=== PATIENT | female | born 1980 ===

== ENCOUNTER 2020-03-22 08:37 | Outpatient (REF) | payer OTHER, SELFPAY | END 2020-03-22 08:38 | disposition home or self-care (01) | LOC: HO.LAB 08:37 | PROVIDERS: Visit Provider Internal Medicine | DX: Z20.822 Contact with and (suspected) exposure to COVID-19 (principal) | CPT/HCPCS: 36415; C9803; U0003; U0005 ==

== ENCOUNTER 2021-01-25 13:46 | Outpatient (REF) | payer MEDICAID, SELFPAY ==
--- NOTE | ~2021-01-25 | US_ITS ---
EXAMINATION: US THYROID CLINICAL INFORMATION: Nontoxic single thyroid nodule. COMPARISON: Ultrasound soft tissue head/neck thyroid dated 07/03/2018. TECHNIQUE: Linear transducer grayscale and color Doppler examination with attention to the region of the thyroid. FINDINGS: SIZE: Measurements of the thyroid lobes and nodules are given in sagittal, anteroposterior and transverse dimensions respectively. Right Thyroid Lobe: 4.0 x 2.0 x 1.7 cm, volume 7.1 mL. Previously 4.6 x 1.7 x 1.8 cm, volume 7.2 mL. Parenchyma: The gland echotexture is heterogeneous. Thyroid vascularity is normal. Left Thyroid Lobe: 4.0 x 1.5 x 1.7 cm, volume 5.3 mL. Previously 4.8 x 1.4 x 1.7 cm, volume 6.1 mL. Parenchyma: The gland echotexture is heterogeneous. Thyroid vascularity is normal. Isthmus: 0.3 cm in maximum AP dimension. Previously 0.2 cm. Estimated total number of nodules greater than or equal to 1 cm: 0. 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 Location: Right mid. Size: 0.9 x 0.8 x 0.6 cm, volume 0.21 mL. Previously: 0.9 x 0.5 x 0.5 cm, volume 0.12 mL. Nodule characteristics: Composition: Solid/almost completely solid (2). Echogenicity: Isoechoic (1). Shape: Not taller than wide (0). Margins: Smooth (0). Echogenic Foci: None (0). ACR TI-RADS total points: 3 Previous: n/a ACR TI-RADS category: 3 Previous: n/a Significant change in size (>/= 20% in 2 dimensions and minimal increase of 2 mm or 50% or greater increase in volume): Yes Change in features: No Change in ACR TI-RADS risk category: n/a NODES: No lymphadenopathy is seen in the tissue surrounding the thyroid gland. US/US thyroid IMPRESSION: Solitary thyroid nodule again noted corresponding to category 3. No follow-up imaging recommended. ACR TI-RADS RECOMMENDATION REFERENCE: Ultrasound-guided fine-needle aspiration, followup ultrasound, no further follow up. * TR1 (0 point) and TR 2 (2 points): No FNA or follow up * TR3 (3 points): FNA if more than or equal to 2.5 cm in maximum dimension, followup ultrasound in 1, 3 and 5 years if 1.5 to 2.4 cm in maximum dimension. * TR4 (4-6 points): FNA if more than or equal to 1.5 cm in maximum dimension, followup ultrasound in 1, 2, 3 and 5 years if 1 to 1.4 cm in maximum dimension. * TR5 (more than or equal to 7 points): FNA if more than or equal to 1 cm in maximum dimension, followup ultrasound every year for 5 years if 0.5 to 0.9 cm in maximum dimension. * TR3, TR4 or TR5 nodules that are below the size threshold for follow up receive no follow up.
== END 2021-01-25 13:47 | disposition home or self-care (01) ==
LOC: HO.US 13:46
PROVIDERS: PCP Registered Nurse Community Health; Visit Provider Registered Nurse Community Health
DX: E04.1 Nontoxic single thyroid nodule (principal); Z86.39 Personal history of other endocrine, nutritional and metabolic disease
CPT/HCPCS: 76536

== ENCOUNTER 2022-06-20 11:03 | Outpatient (REF) | payer MEDICAID, SELFPAY | END 2022-06-20 11:04 | disposition home or self-care (01) | LOC: HO.LNP 11:03 | PROVIDERS: PCP Registered Nurse Community Health; Visit Provider Obstetrics & Gynecology | DX: R87.613 High grade squamous intraepithelial lesion on cytologic smear of cervix (HGSIL) (principal) | CPT/HCPCS: 57454; 81025; 88305; 88342; 88344 ==

== ENCOUNTER → 2022-06-27 13:32 | Outpatient (BNVA) | payer MEDICAID, SELFPAY | PROVIDERS: PCP Registered Nurse Community Health; Visit Provider Obstetrics & Gynecology | DX: N87.1 Moderate cervical dysplasia (principal) | CPT/HCPCS: 99212 ==

== ENCOUNTER 2022-07-07 10:42 | Day surgery (SDC) | payer MEDICAID, SELFPAY ==
--- NOTE | 2022-07-06 09:21 | HO.ANESPROP2 ---
HPI - Anesthesia Eval Consult details Narrative: 41yo F for LEEP,poss loop electrical excision procedure,cone endocervical curettage, PMFSH Active Problems Active Problems: All Active Problems (Updated 06/27/22 @ 14:06 by Atilio Art MD) CARLOS II (cervical intraepithelial neoplasia II) (Acute) HGSIL on cytologic smear of cervix (Acute) Past Medical History Medical History Abnormal Pap smear of cervix Asthma Juli's disease Keloid cicatrix Family History Family History Mother Diabetes HTN (hypertension) Leukemia Father Prostate CA Maternal Grandmother Colon cancer Stomach cancer Paternal Aunt Breast cancer Social History Social History Household Members: Spouse Housing: House Alcohol intake: current Alcohol intake frequency: holidays/special occasions only Patient Tobacco Use Status: Never used Tobacco Current occupational status: employed 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 Sexual orientation: Straight/Heterosexual Gender identity: Female Meds Allergies Allergy/AdvReac Type Severity Reaction Status Date / Time iodine [IODINE] Allergy Severe SWELLING Unverified 06/27/22 14:03 Iodine Allergy Unknown redness Uncoded 06/27/22 14:03 Home Medications Medication Instructions Recorded Confirmed Last Taken Type albuterol sulfate 90 mcg/actuation 2 puff inhalation Q6H PRN wheezing 06/20/22 Unknown History aerosol inhaler (Ventolin HFA) famotidine 20 mg tablet 20 mg PO BID 06/20/22 Unknown History fluticasone propionate 220 2 puff inhalation BID 06/20/22 Unknown History mcg/actuation HFA aerosol inhaler (Flovent HFA) Exam Exam Date and Time: July 06, 2022920 Assessment and Plan Assessment Anesthesia Assessment: Chart Reviewed
[2022-07-07] VITALS (8 sets, daily range): BP systolic 94–114; BP diastolic 57–80; PULSE 74–95; RESP 15–16; TEMP 36.8–36.9; O2SAT 97–98; BMI 31.1
[2022-07-07] MEDS: Lactated Ringers 1,000 ML 100 ML IVCONT (11:52)
--- NOTE | 2022-07-07 12:01 | P.CONAN_ITS ---
[facility] Active Problems Active Problems: All Active Problems (Updated 07/07/22 @ 11:20 by Annia Donnelly RN) HGSIL on cytologic smear of cervix (Acute) CARLOS II (cervical intraepithelial neoplasia II) (Acute) Past Medical History Medical History Abnormal Pap smear of cervix Asthma GERD (gastroesophageal reflux disease) Juli's disease Keloid cicatrix Family History Family History Mother Diabetes HTN (hypertension) Leukemia Father Prostate CA Maternal Grandmother Colon cancer Stomach cancer Paternal Aunt Breast cancer Family history of problems with anesthesia: No Surgical History Surgical History Hx of tubal ligation History of Problems with Anesthesia: No Social History Social History Household Members: Spouse Housing: House Alcohol intake: current Alcohol intake frequency: holidays/special occasions only Patient Tobacco Use Status: Never used Tobacco Use of substances other than those prescribed or required for medical reasons: No Are you DNR?: No Advance Directives: No Advance Directives Information Provided: Yes Current occupational status: employed 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 Sexual orientation: Straight/Heterosexual Gender identity: Female Meds Allergies Allergy/AdvReac Type Severity Reaction Status Date / Time iodine [IODINE] Allergy Severe SWELLING Verified 07/07/22 11:51 Active Medications: Current Medications Albuterol Sulfate (Albuterol Sulfate (0.083%) 2.5 Mg/3 Ml Vial.Neb) 2.5 mg INHALE ONCE PRN PRN Reason: Shortness of Breath/Wheezing Fentanyl (Fentanyl Citrate/Pf 100 Mcg/2 Ml Vial) 50 mcg IVPUSH Q5M PRN; Protocol PRN Reason: Pain, Severe (Pain Scale 7-10) Lactated Ringer's (Lr) 1,000 mls @ 100 mls/hr IVCONT .Q10H STANLEY Last Admin: 07/07/22 11:52 Dose: 100 mls/hr Ondansetron HCl (Ondansetron Hcl 4 Mg/2 Ml Vial) 4 mg IVPUSH ONCE PRN PRN Reason: Nausea and Vomiting Oxycodone HCl (Oxycodone Hcl Immed Release 5 Mg Tablet) 5 mg PO ONCE PRN PRN Reason: Pain, Severe (Pain Scale 7-10) Home Medications Medication Instructions Recorded Confirmed Last Taken Type albuterol sulfate 90 mcg/actuation 2 puff inhalation Q6H PRN wheezing 06/20/22 07/07/22 Unknown History aerosol inhaler (Ventolin HFA) famotidine 20 mg tablet 20 mg PO BID 06/20/22 07/07/22 Unknown History fluticasone propionate 220 2 puff inhalation BID 06/20/22 07/07/22 Unknown History mcg/actuation HFA aerosol inhaler (Flovent HFA) Exam Exam Date and Time: July 07, 2022 1201 Height,Weight and Vital Signs: Height 5 ft 2 in Weight 77.111 kg Last Vital Signs Temp 98.4 F 07/07/22 11:27 Pulse 78 07/07/22 11:27 Resp 15 07/07/22 11:27 BP 109/70 07/07/22 11:27 Pulse Ox 98 07/07/22 11:27 O2 Del Method Room Air 07/07/22 11:27 Airway Mallampati Class: II TM Dist: >3cm Neck ROM: Full Loose/Missing/Broken Teeth: No Heart: rrr Lungs: clear Assessment and Plan Final Anesthetic Review Family History of Problems with Anesthesia: No History of Problems with Anesthesia: No NPO: Yes ASA Class: II Final Preanesthetic Review: No Changes in Pt Med Stat, Meds/Allgs Chart Reviewed, Consent Obtained/Reviewed and Anes Risks/Benef Reviewed Patient Risk: Intermediate Procedure Risk: Low Anesthetic Plan Anesthetic Plan: GA Disposition: Standard PACU
[2022-07-07 12:02] LABS: UPreg QC Valid YES; Urine Pregnancy NEGATIVE (NEGATIVE)
--- NOTE | 2022-07-07 12:30 | MHC.SHP ---
Pre-Procedural Eval Section A Date of Service: 07/07/22 The patient is an INPATIENT: No Changes since office visit: No Cold of Flu in the past 2 weeks, No New Medical Problems, No Changes in Medication and No Patient answered all questions The History & Physical has been completed within 30 days and I have reviewed it.: Yes Section B Chief Complaint: Moderate cervical dysplasia Allergies: Allergies Allergy/AdvReac Type Severity Reaction Status Date / Time iodine [IODINE] Allergy Severe SWELLING Verified 07/07/22 11:51 Plan Diagnosis/Plan: Unchanged I have reviewed the history and physical and performed a pertinent physical examination on my patient. No changes have occurred unless specified. Time Spent With Patient Time: Total time managing care of this patient today ____ minutes.
--- NOTE | 2022-07-07 13:14 | PM.OP ---
Brief Operative Note Date of Service: 07/07/22 Pre-op diagnosis: CARLOS 2 Post-op diagnosis: same Procedure: LEEP CONE with post CONE ECC Surgeon: Atilio Art MD Anesthesia: GLMA and other (Paracervical block) Was an Digital Tech used for this Procedure?: No Estimated blood loss (mL): 0 Pathology: other (Cervical cone, top-hat, anterior ectocervical margin excision, posterior ectocervical margin excision, Post cone ECC) Condition: stable Disposition: other (Home)
--- NOTE | 2022-07-07 13:15 | W.PM.OPN ---
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 A speculum was inserted inside the patient's vagina. The cervix is assessed using the colposcope with acetic acid , the lesions were seen, and at least 1 cm of the squamocolumnar junction was observed. 20 x 5 mm size loop was selected based upon the diameter of the lesion. Lugol solution was used to outline the lesions and area of the transformation zone order to be removed 10 cc of xylocaine with epinephrine were injected submucosally into the surface of the cervix (ectocervix) at the 3, 6, 9, and 12 o'clock positions. The electrosurgical generator is set at 40 baird on blend 1. The loop is carefully passed simultaneously around and under the transformation zone, in order to ensure excising it making sure the lesion is at least 5 mm far from the specimen margins . The loop was allowed to glide through the cervix from one side to the other, allowing the cutting current to divide the tissue. Next, the anterior and posterior ectocervical margin excisions were done; Using a smaller-diameter loop , endo cervical top-hat excision was performed afterwards. An endo cervical curettage is performed following completion of excision, and hemostasis is obtained with a Ball electrode or regular tip cautery. At the end, Monsel's solution was applied to the cone bed. The patient tolerated the procedure well and, all instruments were taken out of the patient vaginal cavity, and the patient was transferred to the PACU in stable condition.
[2022-07-07] MEDS: Acetaminophen 1,000 MG/100 ML PIGGYBACK 400 MG IV (13:57)
== END 2022-07-07 14:50 | disposition home or self-care (01) ==
PROVIDERS: Nurse Practitioner; PCP Registered Nurse Community Health; Visit Provider Obstetrics & Gynecology
PROC: 0UBC7ZZ Excision of Cervix, Via Natural or Artificial Opening (ICD-10-PCS; CPT 57522; principal; 2022-07-07 13:10)
DX: N87.0 Mild cervical dysplasia (principal); J45.909 Unspecified asthma, uncomplicated; E06.3 Autoimmune thyroiditis; K21.9 Gastro-esophageal reflux disease without esophagitis; Z79.51 Long term (current) use of inhaled steroids; Z79.899 Other long term (current) drug therapy; Z91.041 Radiographic dye allergy status; Z88.8 Allergy status to other drugs, medicaments and biological substances
CPT/HCPCS: 57461; 81025; 88305; 88307; J0131; J1100; J2250; J2405

== ENCOUNTER → 2022-07-27 08:14 | Outpatient (BNVA) | payer MEDICAID, SELFPAY | PROVIDERS: PCP Registered Nurse Community Health; Visit Provider Obstetrics & Gynecology | DX: N87.1 Moderate cervical dysplasia (principal) | CPT/HCPCS: 99212 ==

== ENCOUNTER 2022-09-08 08:32 | Outpatient (REF) | payer MEDICAID, SELFPAY ==
--- NOTE | ~2022-09-08 | MM_ITS ---
EXAMINATION: MM SCREENING DIGITAL BREAST TOMOSYNTHESIS, BILATERAL CLINICAL INFORMATION: Screening. Asymptomatic. The lifetime risk of breast cancer based on the Tyrer-Cuzick Model is 13.3.%. COMPARISON: Mammography: None. TECHNIQUE: Digital breast tomosynthesis is performed in both the craniocaudal and mediolateral oblique views along with computer-aided detection (CAD). Synthesized 2D images are generated from the tomosynthesis. FINDINGS: There are scattered areas of fibroglandular density (ACR BI-RADS breast composition Category b). There are no significant masses, abnormal calcifications, or other abnormalities. MM/MM tomosynthesis screening BI IMPRESSION: No mammographic evidence of malignancy. ASSESSMENT: BI-RADS BI-RADS 1 - Negative RECOMMENDATION: Routine annual mammography screening. 1 year F/U This examination should not preclude the clinical evaluation of a suspicious palpable abnormality. This patient's information was entered into a reminder system with a target due date for their next mammogram.
== END 2022-09-08 08:33 | disposition home or self-care (01) ==
LOC: HO.MAMMO 08:32
PROVIDERS: Visit Provider Registered Nurse
DX: Z12.31 Encounter for screening mammogram for malignant neoplasm of breast (principal)
CPT/HCPCS: 77063; 77067

== ENCOUNTER → 2022-09-08 08:45 | Outpatient (BNV) | payer MEDICAID, SELFPAY | PROVIDERS: Visit Provider Radiology Diagnostic Radiology | DX: Z12.31 Encounter for screening mammogram for malignant neoplasm of breast (principal) | CPT/HCPCS: 77063; 77067 ==

== ENCOUNTER 2022-10-04 12:09 | Outpatient (REF) | payer MEDICAID, SELFPAY ==
[2022-10-04 14:51] LABS: Syphilis Screen Nonreactive (Nonreactive)
[2022-10-04 18:28] LABS: CT PCR NOT DETECTED (Not Detect.); NG PCR NOT DETECTED (Not Detect.)
[2022-10-05 05:12] LABS: HBS Num1 324.55 mIU/mL (0-7.99); HBc Num1 0.08 S/CO (0.00-0.79); HBsAGNum1 0.32 S/CO (0.00-0.99); HIV AB/AG Nonreactive (Nonreactive); Hepatitis B Core Antibody Nonreactive (Nonreactive); Hepatitis B Surface Antigen Negative (Negative); ~Hepatitis B Surface Antibody REACTIVE (Nonreactive)
[2022-10-05 05:13] LABS: ~HepC Num1 0.05 S/CO (0.00-0.79); ~Hepatitis C Antibody Nonreactive (Nonreactive)
== END 2022-10-04 12:10 | disposition home or self-care (01) ==
LOC: HO.HHCL 12:09
PROVIDERS: Visit Provider Student in an Organized Health Care Education/Training Program
DX: Z00.00 Encounter for general adult medical examination without abnormal findings (principal)
CPT/HCPCS: 0353U; 86704; 86706; 86780; 86803; 87340; 87389

== ENCOUNTER 2023-02-01 13:43 | Outpatient (REF) | payer MEDICAID, SELFPAY ==
[2023-02-09 03:48] LABS: HPV mRNA E6/E7 Not Detected (Not Detected)
== END 2023-02-01 13:44 | disposition home or self-care (01) ==
LOC: HO.LNP 13:43
PROVIDERS: PCP Registered Nurse Community Health; Visit Provider Obstetrics & Gynecology
DX: Z12.4 Encounter for screening for malignant neoplasm of cervix (principal); Z11.51 Encounter for screening for human papillomavirus (HPV); R87.613 High grade squamous intraepithelial lesion on cytologic smear of cervix (HGSIL)
CPT/HCPCS: 57454; 81025; 87624; 88142; 88305; 88341; 88342; 88360

== ENCOUNTER 2023-02-01 13:43 | Outpatient (AMB) | payer MEDICAID, SELFPAY ==
[2023-02-01 13:52] VITALS: BP 108/68; BMI 31.3
--- NOTE | 2023-02-01 13:52 | MHC.OFFVIS ---
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 Operator Present (Aidyn) Allergies iodine [IODINE] Allergy (Severe, Verified 02/01/23 14:06) SWELLING Is last menstrual period known: No Post menopausal: No Patient : No HPI HPI Comments History of Present Illness Details Presenting for 6 months colpo/biopsy post LEEP cone with post cone ECC for CARLOS 1 positive margin with a previous colpo biopsy that showed CARLOS 2 PFSH Medical History GERD (gastroesophageal reflux disease) Keloid cicatrix Juli's disease Asthma Abnormal Pap smear of cervix Surgical History Hx of tubal ligation Family History Mother Diabetes HTN (hypertension) Leukemia Father Prostate CA Maternal Grandmother Colon cancer Stomach cancer Paternal Aunt Breast cancer Social History Household Members: Spouse Housing: House Alcohol intake: current Alcohol intake frequency: holidays/special occasions only Patient Tobacco Use Status: Never used Tobacco Current occupational status: employed 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 Sexual orientation: Straight/Heterosexual Gender identity: Female Female Reproductive History Menstrual control method: permanent sterilization Review of Systems Const All systems reviewed & are unremarkable except as noted in HPI and below Reports as per HPI and Reports no additional complaints GI Reports no additional complaints Reports no additional complaints Office Procedures Colposcopy Before the procedure was started discussed with the patient the procedure, alternatives & all the risks associated with the procedure (bleeding, infection, injury to vagina, bladder, vessels, possible need for transfusion with all its risks) then patient signed the consent UPT done in the office & negative 6 months post LEEP cone with post cone ECC Speculum inserted, acetic acid used Colposcopy done Transformation zone seen, acetowhite lesions identified at 6+12+9 o?clock, cervical biopsies taken from 6+12+9 o?clock, ECC done afterwards. Vaginoscopy of the upper vagina showed no evidence of any aceto-white lesions Monsel solution used for hemostasis. The patient tolerated well . At the end the patient was instructed to call if temp>100.4, abdominal pain, n/v, bleeding; The patient was given the following instructions: nothing per vagina, no intercourse or bath tub use. All questions answered the patient verbalized understanding. Instructed the patient to make an appointment in 2 weeks for follow-up This note was generated with a voice recognition program. Some errors may have been overlooked during the review of this note. Sometimes these errors may affect the content or meaning of a given sentence. [id number] of cervix including upper vagina with biopsy and ECC Procedure code (CPT) selection complete Assessment & Plan Assessment & Plan (1) CARLOS II (cervical intraepithelial neoplasia II): Comment: Status post LEEP cone was post cone ECC Code(s): N87.1 - Moderate cervical dysplasia Plan: Co testing done, colpo biopsy done see procedure Orders: Orders AMB Colposcopy Today N87.1 - Moderate cervical dysplasia Coding Level of Care Code Procedure Only Diagnoses CARLOS II (cervical intraepithelial neoplasia II) N87.1 CPT Codes Colposcopy - CPT: 39706-[id number] of cervix including upper vagina with biopsy and ECC ([id number])
== END 2023-02-01 14:21 | disposition home or self-care (01) ==
PROVIDERS: PCP Registered Nurse Community Health; Visit Provider Obstetrics & Gynecology
DX: N87.1 Moderate cervical dysplasia (principal); Z32.02 Encounter for pregnancy test, result negative
CPT/HCPCS: 57454

== ENCOUNTER 2023-03-28 12:21 | Outpatient (AMB) | payer MEDICAID, SELFPAY ==
--- NOTE | 2023-03-28 12:36 | A.OFFVIS_ITS ---
Intake Intake Visit Reasons: Colpo Results Allergies iodine [IODINE] Allergy (Severe, Verified 02/01/23 14:06) SWELLING HPI HPI Comments History of Present Illness Details Presenting post colpo for follow-up. The patient is doing well with no complaints. The pathology showed the following: A. Cervix, 6 o'clock, biopsy: Squamous and endocervical mucosa within normal limits. B. Cervix, 9 o'clock, biopsy: Squamous mucosa and endocervical epithelium within normal limits. C. Cervix, 12 o'clock, biopsy: - Squamous mucosa within normal limits. - No endocervical epithelium identified. D. Endocervix, curettage: - Fragments of squamous epithelium withi n normal limits. - Superficial strips of endocervical epi thelium within normal limits PFSH Medical History GERD (gastroesophageal reflux disease) Keloid cicatrix Juli's disease Asthma Abnormal Pap smear of cervix Surgical History Hx of tubal ligation Family History Mother Diabetes HTN (hypertension) Leukemia Father Prostate CA Maternal Grandmother Colon cancer Stomach cancer Paternal Aunt Breast cancer Social History Household Members: Spouse Housing: House Alcohol intake: current Alcohol intake frequency: holidays/special occasions only Patient Tobacco Use Status: Never used Tobacco Current occupational status: employed 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 Sexual orientation: Straight/Heterosexual Gender identity: Female Review of Systems Const All systems reviewed & are unremarkable except as noted in HPI and below Reports as per HPI and Reports no additional complaints GI Reports no additional complaints Reports no additional complaints Assessment & Plan Assessment & Plan (1) CARLOS II (cervical intraepithelial neoplasia II): Comment: Status post LEEP cone was post cone ECC Code(s): N87.1 - Moderate cervical dysplasia Plan: Discussed with the patient the co testing and the pathology results of the colposcopy biopsies & endocervical curettage ( negative). Discussed with the patient the sensitivity specificity, positive and negative predictive value in detecting cervical cancer in addition discussed the regression, persistence and progression rates. Recommended co-testing in 12 months, if cytology and or HPV are abnormal will proceed was colposcopy biopsy and endocervical curettage. Instructions given to the patient to schedule a co test appointment in 1 year. All questions answered the patient verbalized understanding. Coding Level of Care Code Est Pt Level 3 (56162) Diagnoses CARLOS II (cervical intraepithelial neoplasia II) N87.1
[2023-03-28 12:37] VITALS: BP 118/76
--- NOTE | 2023-03-28 12:37 | MHC.OFFVIS ---
Intake Vital Signs 03/28/23 12:37 Height 5 ft 2 in BP 118/76 Intake Visit Reasons: Colpo Results Allergies iodine [IODINE] Allergy (Severe, Verified 02/01/23 14:06) SWELLING [facility] Medical History GERD (gastroesophageal reflux disease) Keloid cicatrix Juli's disease Asthma Abnormal Pap smear of cervix Surgical History Hx of tubal ligation Family History Mother Diabetes HTN (hypertension) Leukemia Father Prostate CA Maternal Grandmother Colon cancer Stomach cancer Paternal Aunt Breast cancer Social History Household Members: Spouse Housing: House Alcohol intake: current Alcohol intake frequency: holidays/special occasions only Patient Tobacco Use Status: Never used Tobacco Current occupational status: employed 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
== END 2023-03-28 12:37 | disposition home or self-care (01) ==
LOC: HO.HWS 12:21
PROVIDERS: PCP Registered Nurse Community Health; Visit Provider Obstetrics & Gynecology
DX: N87.1 Moderate cervical dysplasia (principal)
CPT/HCPCS: 99213

== ENCOUNTER → 2023-03-28 12:21 | Outpatient (BNVA) | payer MEDICAID, SELFPAY | PROVIDERS: PCP Registered Nurse Community Health; Visit Provider Obstetrics & Gynecology | DX: N87.1 Moderate cervical dysplasia (principal) | CPT/HCPCS: 99212 ==

== ENCOUNTER 2023-06-12 17:11 | Outpatient (REF) | payer MEDICAID, SELFPAY ==
[2023-06-13 09:50] LABS: H Pylori Breath Test Negative (Negative)
== END 2023-06-12 17:12 | disposition home or self-care (01) ==
LOC: HO.HHCLNP 17:11
PROVIDERS: Visit Provider Student in an Organized Health Care Education/Training Program
DX: K21.9 Gastro-esophageal reflux disease without esophagitis (principal)
CPT/HCPCS: 83013

== ENCOUNTER 2023-10-09 10:04 | Outpatient (REF) | payer OTHER, SELFPAY ==
[2023-10-09 11:28] LABS: Hematocrit 39.2 % (37.0-47.0); Hemoglobin 13.1 g/dl (12.0-16.0); Mean Corpuscular HGB Conc 33.4 g/dl (31.0-35.0); Mean Corpuscular Hemoglobin 29.5 pg (27.0-33.0); Mean Corpuscular Volume 88.3 fL (80.0-98.0); Platelet Count 301 X10*3/uL (160-400); Red Blood Count 4.44 X10*6/uL (4.20-5.50)
[2023-10-09 11:34] LABS: Estimated Average Glucose 108 mg/dL; Hemoglobin A1c % 5.4 % (<6.0)
[2023-10-09 12:01] LABS: Alanine Aminotransferase 56 U/L (0-31); Albumin Level 3.8 g/dL (3.5-5.0); Alkaline Phosphatase 56 U/L (39-117); Anion Gap 12 (12-20); Aspartate Amino Transferase 39 U/L (5-31); Bilirubin Total 0.4 mg/dL (0.0-1.0); Blood Urea Nitrogen 10 mg/dL (9-16); Calcium 10.3 mg/dL (8.4-10.2); Carbon Dioxide 24 mmol/L (22-29); Chloride 108 mmol/L (96-108); Cholesterol 123 mg/dL (<200); Estimated Glomerular Filt Rate > 60; Glucose Random 107 mg/dL (60-115); HDL Cholesterol 33 mg/dL (>40); LDL Cholesterol Calculated 70 mg/dL (<100); Lipase 23 U/L (8-78); Sodium 140 mmol/L (135-145); Total Protein 7.2 g/dL (6.5-8.0); Triglycerides 102 mg/dL (<150)
[2023-10-09 12:14] LABS: Syphilis Screen Nonreactive (Nonreactive)
[2023-10-09 12:16] LABS: HBS Num1 274.99 mIU/mL (0-7.99); HBc Num1 0.21 S/CO (0.00-0.79); HBsAGNum1 0.26 S/CO (0.00-0.99); HIV AB/AG Nonreactive (Nonreactive); HIV Num 1 0.08 S/CO (0.00-0.99); Hepatitis B Core Antibody Nonreactive (Nonreactive); Hepatitis B Surface Antigen Negative (Negative); ~Hepatitis B Surface Antibody REACTIVE (Nonreactive); ~Hepatitis C Antibody Nonreactive (Nonreactive)
[2023-10-09 12:22] LABS: Free T4 (Free Thyroxine) 3.47 ng/dL (0.71-1.85); Thyroid Stimulating Hormone < 0.01 uIU/mL (0.32-4.0)
[2023-10-10 07:54] LABS: Hepatitis A Antibody IgM 0.14 Index (0-0.79); ~Hepatitis A Antibody IgM Nonreactive (Nonreactive)
== END 2023-10-09 10:05 | disposition home or self-care (01) ==
LOC: HO.HHCL 10:04
PROVIDERS: Visit Provider Student in an Organized Health Care Education/Training Program
DX: Z00.00 Encounter for general adult medical examination without abnormal findings (principal); Z11.4 Encounter for screening for human immunodeficiency virus [HIV]; R19.7 Diarrhea, unspecified
CPT/HCPCS: 36415; 80053; 80061; 83036; 83690; 84439; 84443; 85027; 86704; 86706; 86709; 86780; 86803; 87340; 87389

== ENCOUNTER 2023-10-09 14:22 | Outpatient (REF) | payer OTHER, SELFPAY ==
--- NOTE | ~2023-10-09 | US_ITS ---
EXAMINATION: US ABDOMEN LIMITED CLINICAL INFORMATION: 2 weeks of intense upper abdominal pain, rule out gallbladder pathology.. COMPARISON: None available. TECHNIQUE: Real-time imaging of the right upper quadrant abdominal viscera. FINDINGS: PANCREAS: The visualized pancreas is unremarkable. LIVER: The liver is normal in size. The liver contour is normal. Parenchymal echogenicity is normal. No focal hepatic lesion. There is no intrahepatic biliary duct dilatation seen. GALLBLADDER: The gallbladder is physiologically distended. No gallstones or sludge visualized. No gallbladder wall thickening. There is a 4 mm gallbladder polyp. COMMON BILE DUCT: Normal in caliber measuring 0.6 cm in diameter. RIGHT KIDNEY: Normal. No hydronephrosis. No renal calculi or focal parenchymal lesions. The kidney measures 10.5 cm in maximum dimension. FREE FLUID: None. US/US abdomen limited IMPRESSION: No acute abnormality in the right upper quadrant. 4 mm gallbladder polyp. Electronically signed by: Altaf Cedeno MD 10/09/2023 05:55 PM EDT
== END 2023-10-09 14:23 | disposition home or self-care (01) ==
LOC: HO.US 14:22
PROVIDERS: PCP Student in an Organized Health Care Education/Training Program; Visit Provider Student in an Organized Health Care Education/Training Program
DX: R10.10 Upper abdominal pain, unspecified (principal)
CPT/HCPCS: 76705

== ENCOUNTER 2023-10-16 08:27 | Outpatient (REF) | payer OTHER, SELFPAY ==
[2023-10-16 12:22] LABS: Free T4 (Free Thyroxine) 2.39 ng/dL (0.71-1.85); Thyroid Stimulating Hormone < 0.01 uIU/mL (0.32-4.0)
[2023-10-16 13:22] LABS: CT PCR NOT DETECTED (Not Detect.); NG PCR NOT DETECTED (Not Detect.)
== END 2023-10-16 08:28 | disposition home or self-care (01) ==
LOC: HO.HHCL 08:27
PROVIDERS: Visit Provider Student in an Organized Health Care Education/Training Program
DX: Z00.00 Encounter for general adult medical examination without abnormal findings (principal); E03.9 Hypothyroidism, unspecified
CPT/HCPCS: 36415; 84439; 84443; 87491; 87591

== ENCOUNTER 2023-10-24 07:46 | Outpatient (AMB) | payer OTHER, SELFPAY ==
--- NOTE | 2023-10-24 07:49 | A.OFFVIS_ITS ---
Vital Signs 10/24/23 07:50 Height 5 ft 2 in Weight 165 lb 12.602 oz BMI 30.3 BP 116/58 L Blood Pressure Location Lt brachial Position Sitting Pulse 101 H Pulse Source Pulse Oximeter Intake Visit Reasons: Thyroid Nodule Intake Note: Patient present today for Thyroid nodule. Repairer Typewriter Required: Yes Repairer Typewriter Language: Explosive Expert Services: Repairer Typewriter Present Repairer Typewriter Name: Trey [id number] Information Interpreted: non-clinical & clinical Accompanied by: Self / Same As Patient Allergies iodine [IODINE] Allergy (Severe, Verified 10/24/23 07:54) SWELLING Medication List - Last Reconciled 10/24/23 by Bonny Rodas MD albuterol sulfate 90 mcg/actuation (Ventolin HFA) 2 puffs inhalation Q6H PRN atenolol 25 mg PO DAILY famotidine 20 mg PO BID fluticasone propionate 220 mcg/actuation (Flovent HFA) 2 puffs inhalation BID methimazole 5 mg PO DAILY HPI Comments Details: 43-year-old female coming in today for initial evaluation of hyperthyroidism and thyroid nodule. Pt says she has been having thyroid problems since age 22. She says she has nodules since that age as well. No fna done. She says she was told she had hashimotos. She says she used to be on thyroid medicine ( likley levothyroxine but not sure) from age 22 to 26 years. Was taken off it due to normal blood work. Endorses that dizziness, palpitations, irregular periods , nause a and vomiting during the last one month September 2023. Says she has had difficult swallowing and chronic cough for a long time. No preceding viral illness when all this started. Denies any recent contrast exposure. She endorses heat intolerance, increased diaphoresis, diarrhea ( 3 loose stools per day), lost 14 lbs in the last one month, reports chronic anxiety, LMP September , been missing a period every other month, reports tiredness, has been having falls. 3 falls. Labs from September 2023 show suppressed TSH of less than 0.01, with free T4 elevated at 2.39, has come down from 3.47 in the beginning of September 2023. PCP Diamond Setel started methimazole 5 mg daily and atenolol 25 mg daily 10/23/23. Patient has only taken one dose. Patient currently denies, changes in appearance of eyes or vision changes, but feels many years ago had prominent eyes but then they regressed. Endorses hair loss. Patient endorses difficulty swallowing for many years thats been worsening ,feels neck is more prominenet, reports intermittent voice loss, denies pain on swallowing or or difficulty breathing. Patient expresses she got radiation to her ear for what sound slike a keloid at [facility] in 2022 on right ear. . Denies having ever used lithium, amiodarone or biotin supplements. All four paternal aunts have history of thyroid cancer and had it taken out at age 40 and 50. Not sure what type but they are alive and doing well. Her father is okay. Sister has hypothyroidism. Both her children aged 21 and 24 years of age have hypothyroidism. Review of systems Constitutional: no fevers, chills HEENT: no changes in vision Cardiac: has palpitations. Pulmonary: dyspnea on exertion GI:Still has nausea, no abd pain : no burning micturition, dysuria or increase in urinary frequency Neurologic: has dizziness Physical exam Pulse 100 beats per minute General: sitting comfortably in no acute distress HEENT: normocephalic/atraumatic, no exophthalmos, no lid lag, moist oral mucosa Neck: supple, enlarged right lobe of the thyroid palpable Cardiac: normal heart sounds Pulm: normal breath sounds B/L, no added breath sounds Abd: not distended, no tenderness Extremities: no edema, no signs of myxedema, mild tremors noted PFSH Medical History GERD (gastroesophageal reflux disease) Keloid cicatrix Juli's disease Asthma Abnormal Pap smear of cervix Surgical History Hx of tubal ligation Family History Mother Diabetes HTN (hypertension) Leukemia Father Prostate CA Maternal Grandmother Colon cancer Stomach cancer Paternal Aunt Breast cancer Social History Household Members: Spouse Housing: House Alcohol intake: current Alcohol intake frequency: holidays/special occasions only Patient Tobacco Use Status: Never used Tobacco Current occupational status: employed 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 COMPARISON: Ultrasound soft tissue head/neck thyroid dated 07/03/2018. TECHNIQUE: Linear transducer grayscale and color Doppler examination with attention to the region of the thyroid. FINDINGS: SIZE: Measurements of the thyroid lobes and nodules are given in sagittal, anteroposterior and transverse dimensions respectively. Right Thyroid Lobe: 4.0 x 2.0 x 1.7 cm, volume 7.1 mL. Previously 4.6 x 1.7 x 1.8 cm, volume 7.2 mL. Parenchyma: The gland echotexture is heterogeneous. Thyroid vascularity is normal. Left Thyroid Lobe: 4.0 x 1.5 x 1.7 cm, volume 5.3 mL. Previously 4.8 x 1.4 x 1.7 cm, volume 6.1 mL. Parenchyma: The gland echotexture is heterogeneous. Thyroid vascularity is normal. Isthmus: 0.3 cm in maximum AP dimension. Previously 0.2 cm. Estimated total number of nodules greater than or equal to 1 cm: 0. 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 Location: Right mid. Size: 0.9 x 0.8 x 0.6 cm, volume 0.21 mL. Previously: 0.9 x 0.5 x 0.5 cm, volume 0.12 mL. Nodule characteristics: Composition: Solid/almost completely solid (2). Echogenicity: Isoechoic (1). Shape: Not taller than wide (0). Margins: Smooth (0). Echogenic Foci: None (0). ACR TI-RADS total points: 3 Previous: n/a ACR TI-RADS category: 3 Previous: n/a Significant change in size (>/= 20% in 2 dimensions and minimal increase of 2 mm or 50% or greater increase in volume): Yes Change in features: No Change in ACR TI-RADS risk category: n/a NODES: No lymphadenopathy is seen in the tissue surrounding the thyroid gland. US/US thyroid IMPRESSION: Solitary thyroid nodule again noted corresponding to category 3. No follow-up imaging recommended. ACR TI-RADS RECOMMENDATION REFERENCE: Ultrasound-guided fine-needle aspiration, followup ultrasound, no further follow up. * TR1 (0 point) and TR 2 (2 points): No FNA or follow up * TR3 (3 points): FNA if more than or equal to 2.5 cm in maximum dimension, followup ultrasound in 1, 3 and 5 years if 1.5 to 2.4 cm in maximum dimension. * TR4 (4-6 points): FNA if more than or equal to 1.5 cm in maximum dimension, followup ultrasound in 1, 2, 3 and 5 years if 1 to 1.4 cm in maximum dimension. * TR5 (more than or equal to 7 points): FNA if more than or equal to 1 cm in maximum dimension, followup ultrasound every year for 5 years if 0.5 to 0.9 cm in maximum dimension. * TR3, TR4 or TR5 nodules that are below the size threshold for follow up receive no follow up. Assessment & Plan Assessment & Plan (1) Hyperthyroidism: Code(s): E05.90 - Thyrotoxicosis, unspecified without thyrotoxic crisis or storm Category: Medical Plan: Patient coming in with significant symptoms of hyperthyroidism, for the past 1 month with labs from September 2023 consistent with suppressed TSH and elevated free T4 consistent with a new diagnosis of hyperthyroidism. She has been started on methimazole 5 mg daily and atenolol 25 mg daily for treatment. Discussed with patient that most common differential is Graves disease though given her history of positive TPO antibodies with negative TRAB in the past she could have a component of autoimmune thyroid disease with Juli's toxicosis. If this is autoimmune thyroid disease aboespecially Graves, I explained t 30% of the patients have remission after 12-18 months of treatment with methimazole. More recent data has shown longer periods of treatment resulting in better remission rates as well. At this time we will plan to continue treatment with methimazole. I will also continue atenolol given she has significant palpitations, plus her heart rate is elevated at today's visit. We will check for TSI antibodies to confirm the diagnosis of Graves disease. However given that she also has a history of thyroid nodules, with a strong family history of thyroid cancer, I will also order a thyroid uptake and scan to see if she has any cold nodules that need a biopsy given her higher risk of thyroid cancer in the setting of family history. She already has a thyroid ultrasound ordered for 10/25/2023 which is tomorrow. It is rare to have both Graves and toxic thyroid nodules, however this can happen rarely. Given that in her case she might warrant FNA biopsy, I would like to proceed with getting a thyroid uptake and scan. I explained to the patient to stop taking methimazole 5 days before this uptake and scan. This is just for the purpose of the scan otherwise continue treatment with methimazole 5 mg daily. Plan: -continue methimazole 5 mg daily -continue atenolol 25 mg daily -ordered TSI, total T3, repeat free T4 and TSH as well as CBC and liver function test to be done today -agree with thyroid ultrasound, we will follow up with the results -ordered thyroid uptake and scan, instructed patient to hold methimazole 5 days before the scan The following were discussed as potential side effects of methimazole: - Serious skin rashes - nausea, vomiting, or severe hepatic injury -Agranulocytosis: a rare side effect of methimazole involves a severe decrease in the production of white blood cells. This condition is extremely serious, but affects only one out of every 200 to 500 people who take an antithyroid drug. Agranulocytosis more commonly occurs within the first three months of starting treatment with an antithyroid drug, but can occur at any time. If patient develops a fever (temperature above 100.5F), or other signs or symptoms of infection, she should stop taking the tapazole and immediately have a complete blood count (CBC) done. Serious and potentially life threatening infections, or even , can occur before agranulocytosis resolves. However, once the antithyroid drug is stopped, agranulocytosis usually resolves within a week. - Arthralgias, myalgias - Renal: Nephritis - Fever Patient will stop medication and call our office if these occur. Follow up in 6 weeks (2) Thyroid nodule: Code(s): E04.1 - Nontoxic single thyroid nodule Category: Medical Plan: Patient with history of radiation to her right ear over the past year, with strong family history of thyroid cancer who has a history of solitary right- sided 7 cm thyroid nodule on thyroid ultrasound in 2020. She says she has had diagnosis of thyroid nodules sensation 22 years. She has been having progressively worsening compressive symptoms. While these could be in the setting of goiter if she confirms to have Graves disease, we will still get a thyroid uptake and scan for her thyroid nodules to see if she has any cold nodules that warrant biopsy given she she has a strong family history of thyroid cancer, I will have a low threshold of doing a biopsy of her nodules if they are cold. Plan: -agree with thyroid ultrasound already ordered by primary care physician, we will follow up on results -ordered thyroid uptake and scan, instructed patient to hold methimazole 5 days before the scan Plan I spent 60 minutes in reviewing the record, seeing the patient and documenting in the medical record. Orders: Orders Complete Blood Count Auto Diff Today E04.1 - Nontoxic single thyroid nodule, E05.90 - Thyrotoxicosis, unspecified without thyrotoxic crisis or storm Thyroid Stimulating Hormone Today E04.1 - Nontoxic single thyroid nodule, E05.90 - Thyrotoxicosis, unspecified without thyrotoxic crisis or storm Thyroid Stimulating Immunoglob Today E04.1 - Nontoxic single thyroid nodule, E05.90 - Thyrotoxicosis, unspecified without thyrotoxic crisis or storm NM thyroid w uptake Today E04.1 - Nontoxic single thyroid nodule, E05.90 - Thyrotoxicosis, unspecified without thyrotoxic crisis or storm Triiodothyronine T3 Total Today E04.1 - Nontoxic single thyroid nodule, E05.90 - Thyrotoxicosis, unspecified without thyrotoxic crisis or storm Free T4 (Free Thyroxine) Today E04.1 - Nontoxic single thyroid nodule, E05.90 - Thyrotoxicosis, unspecified without thyrotoxic crisis or storm Thyrotropin Receptor Antibody Today E04.1 - Nontoxic single thyroid nodule, E05.90 - Thyrotoxicosis, unspecified without thyrotoxic crisis or storm Thyroid Peroxidase Antibodies Today E04.1 - Nontoxic single thyroid nodule, E05.90 - Thyrotoxicosis, unspecified without thyrotoxic crisis or storm Liver Panel Today E04.1 - Nontoxic single thyroid nodule, E05.90 - Thyrotoxicosis, unspecified without thyrotoxic crisis or storm Patient Instructions: Do blood work today Continue methimazole 5 mg daily Continue atenolol as it is Do the thyroid ultrasound Do the thyroid uptake and scan , make sure your stop methimazole 6 days before this special scan Follow up in 6 weeks and before that appointment in 6 weeks do another set of blood work 3 days before that appointment If you get fever, flu like symptoms, rash or sore throat, nausea or vomiting, stop methimazole and call our office during office hours Hazte an?lisis de tiffany hoy Continuar con metimazol 5 mg al d?a. Contin?e con atenolol chantel est?. Hacer la ecografia de tiroides Realice la captaci?n y exploraci?n de la tiroides, aseg?rese de suspender el metimazol 6 d?as antes de esta exploraci?n especial. Terrell un seguimiento en 6 semanas y antes de ky ruma en 6 semanas terrell otro an?lisis de tiffany 3 d?as antes de ky ruma Si tiene fiebre, s?ntomas parecidos a los de la gripe, sarpullido o dolor de garganta, n?useas o v?mitos, suspenda el metimazol y llame a nuestra oficina mario el horario de oficina. Coding Level of Care Code New Pt Level 5 (41007) Diagnoses Hyperthyroidism E05.90 Thyroid nodule E04.1 Time Spent (min) 60
[2023-10-24 07:50] VITALS: BP 116/58; PULSE 101; BMI 30.3
== END 2023-10-24 08:51 | disposition home or self-care (01) ==
PROVIDERS: PCP Student in an Organized Health Care Education/Training Program; Visit Provider Student in an Organized Health Care Education/Training Program
DX: E05.90 Thyrotoxicosis, unspecified without thyrotoxic crisis or storm (principal); E04.1 Nontoxic single thyroid nodule
CPT/HCPCS: 99205

== ENCOUNTER → 2023-10-24 07:46 | Outpatient (BNVA) | payer OTHER, SELFPAY | PROVIDERS: PCP Student in an Organized Health Care Education/Training Program; Visit Provider Student in an Organized Health Care Education/Training Program | DX: E05.90 Thyrotoxicosis, unspecified without thyrotoxic crisis or storm (principal); E04.1 Nontoxic single thyroid nodule | CPT/HCPCS: 99202 ==

== ENCOUNTER 2023-10-25 10:19 | Outpatient (REF) | payer OTHER, SELFPAY ==
--- NOTE | ~2023-10-25 | US_ITS ---
EXAMINATION: US THYROID CLINICAL INFORMATION: History of thyroid nodules. COMPARISON: Ultrasound soft tissue head/neck thyroid dated 01/25/2021 and 07/03/2018. TECHNIQUE: Linear transducer grayscale and color Doppler examination with attention to the region of the thyroid. FINDINGS: SIZE: Measurements of the thyroid lobes and nodules are given in sagittal, anteroposterior and transverse dimensions respectively. Right Thyroid Lobe: 5.5 x 2.1 x 1.7 cm, volume 10.3 mL. Previously 4.0 x 2.0 x 1.7 cm, volume 7.1 mL. Parenchyma: The gland echotexture is heterogeneous. Thyroid vascularity is increased. Left Thyroid Lobe: 5.1 x 1.9 x 2.0 cm, volume 10.1 mL. Previously 4.0 x 1.5 x 1.7 cm, volume 5.3 mL. Parenchyma: The gland echotexture is heterogeneous. Thyroid vascularity is increased. Isthmus: 0.3 cm in maximum AP dimension. Previously 0.3 cm. Estimated total number of nodules greater than or equal to 1 cm: 1. 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 Location: Right mid. Size: 1.1 x 0.6 x 0.9 cm, volume 0.3 mL. Previously: 0.9 x 0.8 x 0.6 cm, volume 0.2 mL. Nodule characteristics: Composition: Solid (2). Echogenicity: Hyperechoic (1). Shape: Not taller than wide (0). Margins: Smooth (0). Echogenic Foci: None (0). ACR TI-RADS total points: 3 Previous: 3 ACR TI-RADS category: 3 Previous: 3 Significant change in size (>/= 20% in 2 dimensions and minimal increase of 2 mm or 50% or greater increase in volume): No Change in features: No Change in ACR TI-RADS risk category: No NODES: No lymphadenopathy is seen in the tissue surrounding the thyroid gland. US/US thyroid IMPRESSION: Heterogeneous hypervascular thyroid, increased in overall size since the prior exam. The 1.1 cm TR 3 nodule does not meet criteria for any continued follow-up. No follow-up is recommended. ACR TI-RADS RECOMMENDATION REFERENCE: Ultrasound-guided fine-needle aspiration, follow up ultrasound, no further followup. * TR1 (0 point) and TR2 (2 points): No FNA or followup * TR3 (3 points): FNA if more than or equal to 2.5 cm in maximum dimension, follow up ultrasound in 1, 3 and 5 years if 1.5 to 2.4 cm in maximum dimension. * TR4 (4-6 points): FNA if more than or equal to 1.5 cm in maximum dimension, follow up ultrasound in 1, 2, 3 and 5 years if 1 to 1.4 cm in maximum dimension. * TR5 (more than or equal to 7 points): FNA if more than or equal to 1 cm in maximum dimension, follow up ultrasound every year for 5 years if 0.5 to 0.9 cm in maximum dimension. * TR3, TR4 or TR5 nodules that are below the size threshold for follow up receive no followup. Electronically signed by: Jason Márquez MD 11/07/2023 12:20 AM EDT
== END 2023-10-25 10:20 | disposition home or self-care (01) ==
LOC: HO.US 10:19
PROVIDERS: PCP Student in an Organized Health Care Education/Training Program; Visit Provider Student in an Organized Health Care Education/Training Program
DX: E04.1 Nontoxic single thyroid nodule (principal)
CPT/HCPCS: 76536

== ENCOUNTER 2023-10-25 10:38 | Outpatient (REF) | payer OTHER, SELFPAY ==
[2023-10-25 13:09] LABS: MANUAL DIFF FLAG NO
[2023-10-25 13:13] LABS: Basophils Percent Auto 0.3 % (0-2); Eosinophils Absolute Auto 0.1 X10*3/uL (0.0-0.4); Eosinophils Percent Auto 1.2 % (0-4); Hematocrit 33.6 % (37.0-47.0); Hemoglobin 11.3 g/dl (12.0-16.0); Imm Gran Abs Auto 0.01 X10*3/uL (0.00-0.03); Imm Gran Pct Auto 0.2 % (0.0-0.4); Lymphocytes Absolute Auto 1.9 X10*3/uL (1.2-4.9); Lymphocytes Percent Auto 28.2 % (20-40); Mean Corpuscular HGB Conc 33.6 g/dl (31.0-35.0); Mean Corpuscular Hemoglobin 28.8 pg (27.0-33.0); Mean Corpuscular Volume 85.5 fL (80.0-98.0); Mean Platelet Volume 9.9 fL (9.4-12.3); Monocytes Absolute Auto 0.8 X10*3/uL (0.1-1.2); Monocytes Percent Auto 11.6 % (2-11); Neutrophils Absolute Auto 3.9 x10*3/uL (2.0-8.3); Neutrophils Percent Auto 58.5 % (45-73); Platelet Count 279 X10*3/uL (160-400); Red Blood Count 3.93 X10*6/uL (4.20-5.50); Red Cell Distribution Width 11.5 % (11.0-16.0); White Blood Count 6.7 X10*3/uL (4.8-10.8)
[2023-10-25 13:43] LABS: Alanine Aminotransferase 30 U/L (0-31); Albumin Level 3.4 g/dL (3.5-5.0); Alkaline Phosphatase 49 U/L (39-117); Aspartate Amino Transferase 22 U/L (5-31); Bilirubin Direct 0.1 mg/dL (0.0-0.5); Bilirubin Total 0.3 mg/dL (0.0-1.0); Total Protein 6.3 g/dL (6.5-8.0)
[2023-10-25 13:57] LABS: Thyroid Stimulating Hormone < 0.01 uIU/mL (0.32-4.0)
[2023-10-26 09:08] LABS: Triiodothyronine T3 Total 359 ng/dL (76-181)
[2023-10-26 09:33] LABS: Thyroid Peroxidase Antibodies >900 IU/mL (<9)
[2023-10-28 20:29] LABS: Thyrotropin Receptor Antibody 25.95 IU/L (<=2.00)
[2023-10-29 16:33] LABS: Thyroid Stimulating Immunoglob 196 % baseline (<140)
== END 2023-10-25 10:39 | disposition home or self-care (01) ==
LOC: HO.10HDL 10:38
PROVIDERS: Visit Provider Student in an Organized Health Care Education/Training Program
DX: E04.1 Nontoxic single thyroid nodule (principal); E05.90 Thyrotoxicosis, unspecified without thyrotoxic crisis or storm
CPT/HCPCS: 36415; 80076; 83520; 84439; 84443; 84445; 84480; 85025; 86376

== ENCOUNTER → 2023-11-29 09:24 | Outpatient (REF) | payer OTHER, SELFPAY ==
--- NOTE | ~2023-11-29 | NM_ITS ---
EXAMINATION: THYROID UPTAKE AND SCAN CLINICAL INFORMATION: Nontoxic single thyroid nodule. COMPARISON: Thyroid ultrasound dated 10/25/2023 and 01/25/2021. TECHNIQUE: Following the oral administration of 289 microcuries of I-123 sodium iodide, thyroid uptake was performed and expressed as a percentage of the administrated dose. Gamma scintillation camera images of the thyroid in the anterior and right and left anterior oblique views were obtained using a pinhole collimator following the administration of 10 mCi Tc-99m pertechnetate. FINDINGS: The uptake is 58.36% at 4 hours and 72.81% at 24 hours (Normal radioiodine uptake at 4 to 6 hours is about 5-15% and at 24 hours is 10% to 30%). The radioiodine uptake is abnormally high. The radiopertechnetate thyroid scintigram demonstrates the thyroid gland to be normal in position, shape, and outline. The gland appears prominent/slightly enlarged. There is homogeneous distribution of activity within the the gland with no focal abnormalities noted. Incidental note is made of a likely pyramidal lobe arising from the superior medial aspect of the right lobe of the gland. The trapping function appears normal. NM/NM thyroid w uptake IMPRESSION: 1. Abnormally high radioactive iodine uptake both at 4 and 24 hours. 2. The morphologic appearance of the thyroid gland is most consistent with diffuse thyroid disease including Graves or early stage of Juli's thyroiditis. Electronically signed by: Aleisha Cabrera MD 01/04/2024 11:27 AM CANDIS
== END ==
LOC: HO.NUCMED 09:24
PROVIDERS: PCP Student in an Organized Health Care Education/Training Program; Visit Provider Student in an Organized Health Care Education/Training Program
DX: E04.1 Nontoxic single thyroid nodule (principal); E05.90 Thyrotoxicosis, unspecified without thyrotoxic crisis or storm
CPT/HCPCS: 78014; A9512; A9516

== ENCOUNTER 2023-11-30 12:01 | Outpatient (REF) | payer OTHER, SELFPAY ==
[2023-11-30 14:19] LABS: Free T4 (Free Thyroxine) 2.97 ng/dL (0.71-1.85); Thyroid Stimulating Hormone < 0.01 uIU/mL (0.32-4.0)
[2023-12-02 02:34] LABS: Triiodothyronine T3 Total 417 ng/dL (76-181)
== END 2023-11-30 12:02 | disposition home or self-care (01) ==
LOC: HO.10HDL 12:01
PROVIDERS: Visit Provider Student in an Organized Health Care Education/Training Program
DX: E05.90 Thyrotoxicosis, unspecified without thyrotoxic crisis or storm (principal)
CPT/HCPCS: 36415; 84439; 84443; 84480

== ENCOUNTER 2023-12-04 07:47 | Outpatient (AMB) | payer OTHER, SELFPAY ==
--- NOTE | 2023-12-04 07:59 | MHC.OFFVIS ---
Vital Signs 12/04/23 08:00 12/04/23 08:28 Height 5 ft 2 in Weight 159 lb 6.307 oz BMI 29.2 BP 116/68 Blood Pressure Location Lt brachial Position Sitting Pulse 103 H 96 Pulse Source Pulse Oximeter Palpation Intake Visit Reasons: Thyroid Nodule-conf Intake Note: Patient present today for thyroid nodule follow up visit. Welt Trimming Machine Operator Required: Yes Welt Trimming Machine Operator Language: Mainframe Developer Services: Welt Trimming Machine Operator Present Welt Trimming Machine Operator Name: [id number] [id number] Information Interpreted: non-clinical & clinical Accompanied by: Self / Same As Patient Allergies iodine [IODINE] Allergy (Severe, Verified 12/04/23 08:05) SWELLING HPI Comments Details: 43-year-old female coming in today forfollow up of hyperthyroidism and thyroid nodule. HPI from initial visit Pt says she has been having thyroid problems since age 22. She says she has nodules since that age as well. No fna done. She says she was told she had hashimotos. She says she used to be on thyroid medicine ( likley levothyroxine but not sure) from age 22 to 26 years. Was taken off it due to normal blood work. Endorses that dizziness, palpitations, irregular periods , nause a and vomiting during September 2023. Says she has had difficult swallowing and chronic cough for a long time. No preceding viral illness when all this started. Denies any recent contrast exposure. She endorses heat intolerance, increased diaphoresis, diarrhea ( 3 loose stools per day), lost 14 lbs in the last one month, reports chronic anxiety, LMP 12 October , been missing a period every other month, reports tiredness, has been having falls. 3 falls. Labs from September 2023 show suppressed TSH of less than 0.01, with free T4 elevated at 2.39, has come down from 3.47 in the beginning of September 2023. PCP Diamond Milvia started methimazole 5 mg daily and atenolol 25 mg daily 10/23/23. Interval history Dose of methimazole increased to 10 mg daily in AM 10/29/23, she is taking it regularly She has had tubal ligation, sexually active Reports persistent nigtime palpitations Reports improved tremors Diarrhea is improved Still has persistent tiredness LMP end of October Still having heat intolerance Lost 6 lbs since last visit Taking atenolol 25 mg daily Labs October 2023 showed elevated TSI level of 196, and elevated trap antibody of 25.95. TPO antibodies also noted be elevated. Diagnosis of Graves disease confirmed. October 2023 had thyroid ultrasound which showed right mid lobe 1.1 cm nodule that is stable in size from 2020, TR 3 category. November 2023 also had thyroid uptake and scan, report not read yet but showed diffuse uptake consistent with Graves disease. Patient currently denies, changes in appearance of eyes or vision changes, but feels many years ago had prominent eyes but then they regressed. Endorses hair loss. Patient endorses difficulty swallowing for many years thats been worsening ,feels neck is more prominenet, reports intermittent voice loss, denies pain on swallowing or or difficulty breathing. Patient expresses she got radiation to her ear for what sound slike a keloid at [facility] in 2022 on right ear. . Denies having ever used lithium, amiodarone or biotin supplements. All four paternal aunts have history of thyroid cancer and had it taken out at age 40 and 50. Not sure what type but they are alive and doing well. Her father is okay. Sister has hypothyroidism. Both her children aged 21 and 24 years of age have hypothyroidism. Review of systems Constitutional: no fevers, chills HEENT: no changes in vision Cardiac: has palpitations. Pulmonary: dyspnea on exertion GI:Still has nausea, no abd pain : no burning micturition, dysuria or increase in urinary frequency Neurologic: has dizziness Physical exam Pulse 100 beats per minute General: sitting comfortably in no acute distress HEENT: normocephalic/atraumatic, no exophthalmos, no lid lag, moist oral mucosa Neck: supple, enlarged right lobe of the thyroid palpable Cardiac: normal heart sounds Pulm: normal breath sounds B/L, no added breath sounds Abd: not distended, no tenderness Extremities: no edema, no signs of myxedema, mild tremors noted [facility] Medical History (Updated 10/24/23 @ 08:55 by Bonny Rodas MD) Hyperthyroidism Thyroid nodule Subclinical hyperthyroidism GERD (gastroesophageal reflux disease) Keloid cicatrix Juli's disease Asthma Abnormal Pap smear of cervix Surgical History Hx of tubal ligation Family History Mother Diabetes HTN (hypertension) Leukemia Father Prostate CA Maternal Grandmother Colon cancer Stomach cancer Paternal Aunt Breast cancer Social History Household Members: Spouse Housing: House Alcohol intake: current Alcohol intake frequency: holidays/special occasions only Patient Tobacco Use Status: Never used Tobacco Current occupational status: employed 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 Sexual orientation: Straight/Heterosexual Gender identity: Female Results Reviewed Results Reviewed: Laboratory Tests 06/26/18 07/10/18 10/09/23 10:23 13:29 10:05 Free T4 0.90 3.47 H TSH 3rd Generation 0.52 0.54 TSH < 0.01 L Total T3 Thyroid Stim Immunoglob Thyroid Peroxidase Ab 682 H TSH Receptor Antibody <6.0 TSH Receptor Ab 10/16/23 10/25/23 11/30/23 08:35 10:45 12:05 Free T4 2.39 H 2.10 H 2.97 H TSH 3rd Generation TSH < 0.01 L < 0.01 L < 0.01 L Total T3 359 H 417 H Thyroid Stim Immunoglob 196 H Thyroid Peroxidase Ab >900 H TSH Receptor Antibody TSH Receptor Ab 25.95 H Laboratory Tests 06/26/18 07/10/18 10/09/23 10:23 13:29 10:05 Free T4 0.90 3.47 H TSH 3rd Generation 0.52 0.54 TSH < 0.01 L Thyroid Peroxidase Ab 682 H TSH Receptor Antibody <6.0 10/16/23 08:35 Free T4 2.39 H TSH 3rd Generation TSH < 0.01 L Thyroid Peroxidase Ab TSH Receptor Antibody Thyroid uptake and scan from November 2023, report not radiate but I reviewed the images and overall increased uptake noted. Diffuse uptake consistent with Graves disease. No regions of decreased uptake to suggest cold nodules noted. US THYROID 11/12 I reviewed the images myself which showed a right mid lobe 1.1 cm nodule solid, hyperechoic, with no suspicious features, remained stable in size from 2020. No other nodules noted. Gland is heterogenous with increased vascularity. CLINICAL INFORMATION: History of thyroid nodules. COMPARISON: Ultrasound soft tissue head/neck thyroid dated 01/25/2021 and 07/03/2018. TECHNIQUE: Linear transducer grayscale and color Doppler examination with attention to the region of the thyroid. FINDINGS: SIZE: Measurements of the thyroid lobes and nodules are given in sagittal, anteroposterior and transverse dimensions respectively. Right Thyroid Lobe: 5.5 x 2.1 x 1.7 cm, volume 10.3 mL. Previously 4.0 x 2.0 x 1.7 cm, volume 7.1 mL. Parenchyma: The gland echotexture is heterogeneous. Thyroid vascularity is increased. Left Thyroid Lobe: 5.1 x 1.9 x 2.0 cm, volume 10.1 mL. Previously 4.0 x 1.5 x 1.7 cm, volume 5.3 mL. Parenchyma: The gland echotexture is heterogeneous. Thyroid vascularity is increased. Isthmus: 0.3 cm in maximum AP dimension. Previously 0.3 cm. Estimated total number of nodules greater than or equal to 1 cm: 1. Juice Standardizer nodules are described as follows: 1. Location: Right mid. Size: 1.1 x 0.6 x 0.9 cm, volume 0.3 mL. Previously: 0.9 x 0.8 x 0.6 cm, volume 0.2 mL. Nodule characteristics: Composition: Solid (2). Echogenicity: Hyperechoic (1). Shape: Not taller than wide (0). Margins: Smooth (0). Echogenic Foci: None (0). ACR TI-RADS total points: 3 Previous: 3 ACR TI-RADS category: 3 Previous: 3 Significant change in size (>/= 20% in 2 dimensions and minimal increase of 2 mm or 50% or greater increase in volume): No Change in features: No Change in ACR TI-RADS risk category: No NODES: No lymphadenopathy is seen in the tissue surrounding the thyroid gland. US THYROID Jan 2021 I reviewed the ultrasound images myself, which showed the right lobe thyroid nodule, subcentimeter in size CLINICAL INFORMATION: Nontoxic single thyroid nodule. COMPARISON: Ultrasound soft tissue head/neck thyroid dated 07/03/2018. TECHNIQUE: Linear transducer grayscale and color Doppler examination with attention to the region of the thyroid. FINDINGS: SIZE: Measurements of the thyroid lobes and nodules are given in sagittal, anteroposterior and transverse dimensions respectively. Right Thyroid Lobe: 4.0 x 2.0 x 1.7 cm, volume 7.1 mL. Previously 4.6 x 1.7 x 1.8 cm, volume 7.2 mL. Parenchyma: The gland echotexture is heterogeneous. Thyroid vascularity is normal. Left Thyroid Lobe: 4.0 x 1.5 x 1.7 cm, volume 5.3 mL. Previously 4.8 x 1.4 x 1.7 cm, volume 6.1 mL. Parenchyma: The gland echotexture is heterogeneous. Thyroid vascularity is normal. Isthmus: 0.3 cm in maximum AP dimension. Previously 0.2 cm. Estimated total number of nodules greater than or equal to 1 cm: 0. Juice Standardizer nodules are described as follows: 1. Location: Right mid. Size: 0.9 x 0.8 x 0.6 cm, volume 0.21 mL. Previously: 0.9 x 0.5 x 0.5 cm, volume 0.12 mL. Nodule characteristics: Composition: Solid/almost completely solid (2). Echogenicity: Isoechoic (1). Shape: Not taller than wide (0). Margins: Smooth (0). Echogenic Foci: None (0). ACR TI-RADS total points: 3 Previous: n/a ACR TI-RADS category: 3 Previous: n/a Significant change in size (>/= 20% in 2 dimensions and minimal increase of 2 mm or 50% or greater increase in volume): Yes Change in features: No Change in ACR TI-RADS risk category: n/a NODES: No lymphadenopathy is seen in the tissue surrounding the thyroid gland. US/US thyroid IMPRESSION: Solitary thyroid nodule again noted corresponding to category 3. No follow-up imaging recommended. ACR TI-RADS RECOMMENDATION REFERENCE: Ultrasound-guided fine-needle aspiration, followup ultrasound, no further follow up. * TR1 (0 point) and TR 2 (2 points): No FNA or follow up * TR3 (3 points): FNA if more than or equal to 2.5 cm in maximum dimension, followup ultrasound in 1, 3 and 5 years if 1.5 to 2.4 cm in maximum dimension. * TR4 (4-6 points): FNA if more than or equal to 1.5 cm in maximum dimension, followup ultrasound in 1, 2, 3 and 5 years if 1 to 1.4 cm in maximum dimension. * TR5 (more than or equal to 7 points): FNA if more than or equal to 1 cm in maximum dimension, followup ultrasound every year for 5 years if 0.5 to 0.9 cm in maximum dimension. * TR3, TR4 or TR5 nodules that are below the size threshold for follow up receive no follow up. Assessment & Plan Assessment & Plan (1) Hyperthyroidism: Code(s): E05.90 - Thyrotoxicosis, unspecified without thyrotoxic crisis or storm Category: Medical Plan: 43-year-old female Patient with hyperthyroidism, diagnosed September 2023 consistent with suppressed TSH and elevated free T4. Was started on methimazole 5 mg daily and atenolol 25 mg daily for treatment in September 2023. Labs October 2023 consistent with Graves disease with elevated TSI, traveling TPO antibodies. Dose was increased to 10 mg of methimazole daily in in on 10/29/2023. Labs October 2023 showed elevated TSI level of 196, and elevated trap antibody of 25.95. TPO antibodies also noted be elevated. Diagnosis of Graves disease confirmed. October 2023 had thyroid ultrasound which showed right mid lobe 1.1 cm nodule that is stable in size from 2020, TR 3 category. November 2023 also had thyroid uptake and scan, report not read yet but showed diffuse uptake consistent with Graves disease. I explained t 30% of the patients have remission after 12-18 months of treatment with methimazole. More recent data has shown longer periods of treatment resulting in better remission rates as well. At this time we will plan to continue treatment with methimazole. I will also continue atenolol given she has significant palpitations, plus her heart rate is elevated at today's visit. We will check for TSI antibodies to confirm the diagnosis of Graves disease. Most recent labs 11/30/2023 still shows suppressed TSH, free T4 slightly worsened at 2.97, total T3 is quite elevated at 417. We will increase the dose of methimazole to 15 mg daily with 10 mg in the morning and 5 mg in the evening. Plan: -increase the dose of methimazole to 15 mg daily with 10 mg in the morning and 5 mg in the evening. -continue atenolol 25 mg daily - repeat free T4 and TSH and total t3 in 5 weeks -follow up results official thyroid uptake and scan report The following were discussed as potential side effects of methimazole: - Serious skin rashes - nausea, vomiting, or severe hepatic injury -Agranulocytosis: a rare side effect of methimazole involves a severe decrease in the production of white blood cells. This condition is extremely serious, but affects only one out of every 200 to 500 people who take an antithyroid drug. Agranulocytosis more commonly occurs within the first three months of starting treatment with an antithyroid drug, but can occur at any time. If patient develops a fever (temperature above 100.5F), or other signs or symptoms of infection, she should stop taking the tapazole and immediately have a complete blood count (CBC) done. Serious and potentially life threatening infections, or even , can occur before agranulocytosis resolves. However, once the antithyroid drug is stopped, agranulocytosis usually resolves within a week. - Arthralgias, myalgias - Renal: Nephritis - Fever Patient will stop medication and call our office if these occur. Follow up in 12 weeks (2) Thyroid nodule: Code(s): E04.1 - Nontoxic single thyroid nodule Category: Medical Plan: Patient with history of radiation to her right ear over the past year, with strong family history of thyroid cancer who has a history of solitary right-sided subcentimeter cm thyroid nodule on thyroid ultrasound in 2020. She says she has had diagnosis of thyroid nodules sensation 21 years. She has been having progressively worsening compressive symptoms. these could be in the setting of goiter given Graves disease, also underwent thyroid uptake and scan for her thyroid nodules November 2023, which shows diffuse uptake with no photopenic regions per my interpretation. Official report still pending. We will follow up these results. Repeat ultrasound in October 2023 showed stable size of the right mid lobe 1.1 cm nodule. This is TR 3 category. Does not meet criteria for FNA. No high suspicion features. Given strong family history of thyroid cancer we will plan to repeat thyroid ultrasound in 1 years. Plan: -follow up results of thyroid uptake scan -repeat ultrasound in October 2024 Plan I spent 30 minutes in reviewing the record, seeing the patient and documenting in the medical record. Orders: Orders Free T4 (Free Thyroxine) 5 Weeks E05.90 - Thyrotoxicosis, unspecified without thyrotoxic crisis or storm Thyroid Stimulating Hormone 5 Weeks E05.90 - Thyrotoxicosis, unspecified without thyrotoxic crisis or storm Triiodothyronine T3 Total 5 Weeks E05.90 - Thyrotoxicosis, unspecified without thyrotoxic crisis or storm Medications: New methimazole Take 2 tablets in the morning and 1 in the evening orally; 90 tabs 3RF Discontinued methimazole Take one tablet daily Discontinued Reason: Patient Completed Course 10 mg PO DAILY 30 tabs 3RF Patient Instructions: Increase methimazole to 10 mg (2 tablets of 5 mg ) in AM and 5 mg ( 1 tablet ) in evening Do blood work in 5 weeks , we will message with results on the portal Continue atenolol as it is The following were discussed as potential side effects of methimazole: - Serious skin rashes - nausea, vomiting, or severe hepatic injury -Agranulocytosis: a rare side effect of methimazole involves a severe decrease in the production of white blood cells. This condition is extremely serious, but affects only one out of every 200 to 500 people who take an antithyroid drug. Agranulocytosis more commonly occurs within the first three months of starting treatment with an antithyroid drug, but can occur at any time. If patient develops a fever (temperature above 100.5F), or other signs or symptoms of infection, she should stop taking the tapazole and immediately have a complete blood count (CBC) done. Serious and potentially life threatening infections, or even , can occur before agranulocytosis resolves. However, once the antithyroid drug is stopped, agranulocytosis usually resolves within a week. - Arthralgias, myalgias - Renal: Nephritis - Fever Patient will stop medication and call our office if these occur. Aumente el metimazol a 10 mg (2 comprimidos de 5 mg) por la ma?jonah y 5 mg (1 comprimido) por la noche. Arlen an?lisis de tiffany en 5 semanas, le enviaremos un mensaje con los resultados en el portal. Contin?e con atenolol chantel est?. Se discutieron los siguientes chantel posibles efectos secundarios del metimazol: - Erupciones cut?neas graves - n?useas, v?mitos o lesi?n hep?paulina grave -Agranulocitosis: un efecto secundario poco com?n del metimazol implica jose l disminuci?n severa en la producci?n de gl?bulos blancos. Esta afecci?n es extremadamente grave, mora afecta s?lo a jose l de cada 200 a 500 personas que frankie un f?rmaco antitiroideo. La agranulocitosis ocurre con mayor frecuencia dentro de los primeros javan meses despu?s de iniciar el tratamiento con un f?rmaco antitiroideo, mora puede ocurrir en cualquier momento. Si la paciente presenta fiebre (temperatura superior a 100,5 ?F) u otros signos o s?ntomas de infecci?n, debe dejar de north tapazol y realizarse inmediatamente un hemograma completo (CBC). Antes de que se resuelva la agranulocitosis, pueden ocurrir infecciones graves y potencialmente mortales, o incluso la muerte. Sin embargo, jose l vez que se suspende el f?rmaco antitiroideo, la agranulocitosis generalmente se resuelve en jose l semana. - Artralgias, mialgias - Renal: Nefritis - Fiebre El paciente suspender? la medicaci?n y llamar? a nuestro consultorio si esto ocurre. Coding Level of Care Code Est Pt Level 4 (47527) Diagnoses Hyperthyroidism E05.90 Thyroid nodule E04.1 Time Spent (min) 30
[2023-12-04 08:00] VITALS: BP 116/68; PULSE 103; BMI 29.2
[2023-12-04 08:28] VITALS: PULSE 96
== END 2023-12-04 08:38 | disposition home or self-care (01) ==
PROVIDERS: PCP Student in an Organized Health Care Education/Training Program; Visit Provider Student in an Organized Health Care Education/Training Program
DX: E05.90 Thyrotoxicosis, unspecified without thyrotoxic crisis or storm (principal); E04.1 Nontoxic single thyroid nodule
CPT/HCPCS: 99214

== ENCOUNTER → 2023-12-04 07:47 | Outpatient (BNVA) | payer OTHER, SELFPAY | PROVIDERS: PCP Student in an Organized Health Care Education/Training Program; Visit Provider Student in an Organized Health Care Education/Training Program | DX: E05.90 Thyrotoxicosis, unspecified without thyrotoxic crisis or storm (principal); E04.1 Nontoxic single thyroid nodule | CPT/HCPCS: 99212 ==